=== PATIENT | male | born 1960 | race Caucasian/White ===

== ENCOUNTER 2019-11-29 20:28 | Emergency (ER) | payer MEDICARE, MEDICAID, OTHER ==
[~2019-11-29] VITALS: Ht 165.1 cm; Wt 76.3 kg
[2019-11-29] MEDS ORDERED: KETOROLAC 60MG/2ML VIAL IM ONE (23:30)
[2019-11-30 00:02] LABS: CHLORIDE 111 mEq/L (98-107)
[2019-11-30 00:41] LABS: BASOPHILS % 0.6 % (0.0-2.0); HEMATOCRIT. 30.8 % (42.0-52.0); HEMOGLOBIN. 10.8 g/dL (14.0-18.0); LYMPHOCYTES % 25.3 % (20.0-50.0); MEAN CORPUSCULAR HEMOGLOBIN 31.8 pg (28.0-32.0); MEAN CORPUSCULAR VOLUME 90.4 fL (80.0-94.0); MEAN PLATELET VOLUME 7.9 fl (7.4-10.4); NEUTROPHILS % 56.1 % (40.0-76.0); RED CELL DISTRIBUTION WIDTH 13.8 % (11.6-14.6)
[2019-11-30 00:43] LABS: PLATELET 72 x1000/uL (130-400); RED BLOOD CELL COUNT 3.46 mill/uL (4.7-6.1)
[2019-11-30 03:38] VITALS: BP 120/82
== END 2019-11-30 03:40 | disposition home or self-care (01) ==
LOC: ER 20:28
DX: J06.9 Acute upper respiratory infection, unspecified (principal); E11.9 Type 2 diabetes mellitus without complications; I10 Essential (primary) hypertension; Z98.890 Other specified postprocedural states
CPT/HCPCS: 36415; 71045; 80053; 83880; 84484; 85025; 93005; 96372; 99285; J1885

== ENCOUNTER 2019-12-03 00:41 | Emergency (ER) | payer MEDICARE, OTHER ==
[~2019-12-03] VITALS: Ht 165.1 cm; Wt 81.0 kg
[2019-12-03] MEDS ORDERED: KETOROLAC 30MG/ML VIAL IM STA (01:25)
[2019-12-03 01:47] LABS: BASOPHILS % 0.8 % (0.0-2.0); EOSINOPHILS % 4.3 % (0.0-5.0); HEMATOCRIT. 30.9 % (42.0-52.0); HEMOGLOBIN. 11.2 g/dL (14.0-18.0); LYMPHOCYTES % 21.4 % (20.0-50.0); MEAN CORPUSCULAR HEMOGLOBIN 32.2 pg (28.0-32.0); MEAN CORPUSCULAR VOLUME 89.2 fL (80.0-94.0); MEAN PLATELET VOLUME 7.7 fl (7.4-10.4); MONOCYTES % 11.9 % (2.0-8.0); NEUTROPHILS % 61.6 % (40.0-76.0); PLATELET 80 x1000/uL (130-400); RED BLOOD CELL COUNT 3.47 mill/uL (4.7-6.1)
[2019-12-03 01:50] LABS: CHLORIDE 109 mEq/L (98-107)
[2019-12-03 02:00] LABS: CLARITY URINE CLEAR (CLEAR); KETONES URINE TRACE (NEGATIVE); LEUKOCYTE ESTERASE URINE NEGATIVE (NEGATIVE); NITRITE URINE NEGATIVE (NEGATIVE); OCCULT BLOOD URINE NEGATIVE (NEGATIVE); PROTEIN URINE NEGATIVE (NEGATIVE); SPECIFIC GRAVITY URINE 1.018 (1.005-1.030); UROBILINOGEN URINE 0.2 E.U./dL (0.2-1.0)
[2019-12-03 02:05] LABS: COLOR URINE YELLOW (YELLOW)
[2019-12-03] MEDS ORDERED: ONDANSETRON HCL 4MG/2ML INJ IV STA (02:23)
[2019-12-03] MEDS ORDERED: MORPHINE SULFATE 4 MG/ML CPJ (NOT FOR IM USE) IV STA (02:23)
[2019-12-03 05:14] VITALS: BP 100/66
== END 2019-12-03 06:19 | disposition home or self-care (01) ==
LOC: ER 00:41
DX: R07.89 Other chest pain (principal); E11.9 Type 2 diabetes mellitus without complications; I10 Essential (primary) hypertension; M10.9 Gout, unspecified; K74.60 Unspecified cirrhosis of liver; Z98.1 Arthrodesis status
CPT/HCPCS: 36415; 71045; 80053; 81003; 82962; 83880; 84484; 85025; 93005; 96372; 96374; 96375; 99285; J1885; J2270; J2405

== ENCOUNTER 2021-05-29 08:45 | Inpatient (IN) | payer MEDICARE, OTHER ==
[~2021-05-29] VITALS: Ht 165.1 cm; Wt 83.0 kg
[~2021-05-29 08:45] MED LIST: ALLO100T PO; CHOL500010; GABA-529 PO; LACT10SO6 PO; METF-414 PO; METO-539 PO; METO10TA3 MT; MIRT-90 PO; PANT40TA51 PO; PRAV40TA58 PO; QUIN20TA30 PO; RIFA550T MT; TAMS-11 PO
[2021-05-29] MEDS ORDERED: ASPIRIN 81MG TABLET PO ONE (10:00)
[2021-05-29] MEDS: NITROGLYCERIN 0.4MG TABLET SL SL PRN ×3 (10:06→15:22)
[2021-05-29 10:15] LABS: BASOPHILS % 0.1 % (0.0-2.0); HEMATOCRIT. 26.2 % (42.0-52.0); HEMOGLOBIN. 8.7 g/dL (14.0-18.0); LYMPHOCYTES % 7.7 % (20.0-50.0); MEAN CORPUSCULAR HEMOGLOBIN 29.4 pg (28.0-32.0); MEAN CORPUSCULAR VOLUME 88.6 fL (80.0-94.0); MEAN PLATELET VOLUME 8.4 fl (7.4-10.4); MONOCYTES % 11.3 % (2.0-8.0); NEUTROPHILS % 80.9 % (40.0-76.0); PLATELET 53 x1000/uL (130-400); RED BLOOD CELL COUNT 2.96 mill/uL (4.7-6.1)
[2021-05-29 10:27] LABS: CHLORIDE 110 mEq/L (98-107)
[2021-05-29] MEDS ORDERED: LACTULOSE 20G/30ML UDC PO ONE (14:30)
[2021-05-29] MEDS ORDERED: FUROSEMIDE 20MG TABLET PO ONE (17:00)
[2021-05-30] VITALS (7 sets, daily range): BP systolic 124–162; BP diastolic 76–93
[2021-05-30 00:48] LABS: CLARITY URINE CLEAR (CLEAR); COLOR URINE YELLOW (YELLOW); KETONES URINE NEGATIVE (NEGATIVE); LEUKOCYTE ESTERASE URINE NEGATIVE (NEGATIVE); NITRITE URINE NEGATIVE (NEGATIVE); OCCULT BLOOD URINE NEGATIVE (NEGATIVE); PROTEIN URINE NEGATIVE (NEGATIVE); SPECIFIC GRAVITY URINE 1.008 (1.005-1.030); UROBILINOGEN URINE 0.2 E.U./dL (0.2-1.0)
[2021-05-30] MEDS ORDERED: OXYCODONE HCL 15 MG PO PRN (03:30)
[2021-05-30] MEDS ORDERED: TAMS-11 PO (03:55)
[2021-05-30] MEDS ORDERED: MIRT-90 PO (03:55)
[2021-05-30] MEDS ORDERED: GABA-529 PO (03:55)
[2021-05-30] MEDS ORDERED: PRAV40TA58 PO (03:55)
[2021-05-30] MEDS ORDERED: PROT40 PO (03:55)
[2021-05-30] MEDS ORDERED: QUIN20TA30 PO (03:55)
[2021-05-30] MEDS ORDERED: METO-539 PO (03:55)
[2021-05-30] MEDS ORDERED: METO-293 PO (03:55)
[2021-05-30] MEDS ORDERED: METF-414 PO (03:55)
[2021-05-30] MEDS ORDERED: OXYC-580 PO (03:55)
[2021-05-30] MEDS ORDERED: RIFA550T PO (03:55)
[2021-05-30] MEDS ORDERED: LACT10SO6 PO (03:55)
[2021-05-30] MEDS ORDERED: CHOL500010 PO (03:55)
[2021-05-30] MEDS ORDERED: ALLO100T PO (03:55)
[2021-05-30] MEDS ORDERED: DEXTROSE 50% WATER 50ML SYRINGE IV PRN ×2 (04:30→08:30)
[2021-05-30] MEDS ORDERED: OXYCODONE HCL 5MG TABLET PO PRN (04:30)
[2021-05-30] MEDS: BLOOD SUGAR DIAGNOSTIC STRIP TEST SCH ×4 (07:10→20:37)
[2021-05-30] MEDS: INSULIN LISPRO 100 UNITS/ML SUBCUT SCH ×4 (07:10→21:37)
[2021-05-30] MEDS: PANTOPRAZOLE 40MG DR TABLET PO SCH (07:13)
[2021-05-30] MEDS: METOCLOPRAMIDE HCL 10MG TABLET PO SCH (07:13)
[2021-05-30 07:22] LABS: CHLORIDE 110 mEq/L (98-107)
[2021-05-30 07:33] LABS: EOSINOPHILS % 0.1 % (0.0-5.0); HEMATOCRIT. 24.7 % (42.0-52.0); HEMOGLOBIN. 8.4 g/dL (14.0-18.0); LYMPHOCYTES % 9.5 % (20.0-50.0); MEAN CORPUSCULAR HEMOGLOBIN 29.5 pg (28.0-32.0); MEAN CORPUSCULAR VOLUME 86.9 fL (80.0-94.0); MEAN PLATELET VOLUME 8.1 fl (7.4-10.4); MONOCYTES % 13.4 % (2.0-8.0); RED BLOOD CELL COUNT 2.85 mill/uL (4.7-6.1); RED CELL DISTRIBUTION WIDTH 15.6 % (11.6-14.6)
[2021-05-30 08:12] LABS: *AMPHETAMINES SCREEN URINE NEGATIVE (NEGATIVE); *BARBITURATES SCREEN URINE NEGATIVE (NEGATIVE)
[2021-05-30 08:13] LABS: *BENZODIAZEPINES SCREEN URINE NEGATIVE (NEGATIVE); *COCAINE SCREEN URINE NEGATIVE (NEGATIVE); CANNABINOID URINE SCREEN NEGATIVE (NEGATIVE); METHADONE URINE SCREEN NEGATIVE (NEGATIVE); OPIATES URINE SCREEN NEGATIVE (NEGATIVE); PHENCYCLIDINE URINE SCREEN NEGATIVE (NEGATIVE)
[2021-05-30] MEDS: TAMSULOSIN HCL 0.4MG SR CAPSULE PO SCH (08:21)
[2021-05-30] MEDS: LACTULOSE 20G/30ML UDC PO SCH ×3 (08:21→17:00)
[2021-05-30] MEDS: RIFAXIMIN 550 MG TABLET PO SCH ×2 (08:21→17:28)
[2021-05-30] MEDS: ALLOPURINOL 100 MG TABLET PO SCH (08:22)
[2021-05-30] MEDS: GABAPENTIN 100MG CAPSULE PO SCH ×3 (08:22→17:28)
[2021-05-30] MEDS: METOPROLOL TARTRATE 50MG TABLET PO SCH ×2 (08:22→21:34)
[2021-05-30] MEDS ORDERED: CLONIDINE 0.1MG TABLET PO PRN (08:30)
[2021-05-30] MEDS ORDERED: NALOXONE HCL 0.4MG/ML VIAL IV PRN (08:30)
[2021-05-30] MEDS ORDERED: MAGNESIUM/ALUMINUM HYDROXIDE/SIMETHICONE 30ML UDC PO PRN (08:30)
[2021-05-30] MEDS ORDERED: ONDANSETRON HCL 4MG/2ML INJ IV PRN (08:30)
[2021-05-30] MEDS ORDERED: MEDICATION NOT ON FORMULARY EA (Lactulose 30 GM) PO SCH (09:00)
[2021-05-30] MEDS ORDERED: METFORMIN HCL 500MG TABLET PO SCH (09:00)
[2021-05-30] MEDS ORDERED: MEDICATION NOT ON FORMULARY EA (Pravastatin Sodium 40 MG) PO SCH (09:00)
[2021-05-30] MEDS ORDERED: BLOOD SUGAR DIAGNOSTIC STRIP TEST SCH (12:20)
[2021-05-30 15:47] LABS: PLATELET 44 x1000/uL (130-400); PLATELET ESTIMATE MARKEDLY DECREASED
[2021-05-30 17:05] LABS: CLARITY URINE CLEAR (CLEAR); COLOR URINE YELLOW (YELLOW); KETONES URINE NEGATIVE (NEGATIVE); LEUKOCYTE ESTERASE URINE NEGATIVE (NEGATIVE); NITRITE URINE NEGATIVE (NEGATIVE); OCCULT BLOOD URINE NEGATIVE (NEGATIVE); PH URINE 5.5 (4.5-8.0); PROTEIN URINE NEGATIVE (NEGATIVE); SPECIFIC GRAVITY URINE 1.019 (1.005-1.030); UROBILINOGEN URINE 0.2 E.U./dL (0.2-1.0)
[2021-05-30] MEDS ORDERED: MIRTAZAPINE 30MG TABLET PO SCH (21:00)
[2021-05-30] MEDS: MIRTAZAPINE 15MG TABLET PO SCH (21:00)
[2021-05-30] MEDS: ATORVASTATIN CALCIUM 10MG TABLET PO SCH (21:34)
[2021-05-31 00:18] VITALS: BP 118/67
[2021-05-31 04:00] VITALS: BP 121/61
[2021-05-31 05:51] LABS: CHLORIDE 108 mEq/L (98-107)
[2021-05-31 06:00] LABS: LDL CHOLESTEROL 73 mg/dL (5-100); PHOSPHORUS 3.6 mg/dL (2.5-4.9)
[2021-05-31 06:02] LABS: HDL CHOLESTEROL 31 mg/dL (40-59); T4 FREE 1.17 ng/dL (0.76-1.46)
[2021-05-31 06:21] LABS: INR 1.8; PROTHROMBIN TIME 18.1 sec (9.6-11.0)
[2021-05-31 06:36] LABS: BASOPHILS % 0.1 % (0.0-2.0); HEMATOCRIT. 24.6 % (42.0-52.0); HEMOGLOBIN. 8.5 g/dL (14.0-18.0); LYMPHOCYTES % 9.5 % (20.0-50.0); MEAN CORPUSCULAR HEMOGLOBIN 29.7 pg (28.0-32.0); MEAN PLATELET VOLUME 7.8 fl (7.4-10.4); MONOCYTES % 13.4 % (2.0-8.0); RED BLOOD CELL COUNT 2.87 mill/uL (4.7-6.1); RED CELL DISTRIBUTION WIDTH 15.8 % (11.6-14.6)
[2021-05-31] MEDS: BLOOD SUGAR DIAGNOSTIC STRIP TEST SCH ×4 (07:20→20:45)
[2021-05-31] MEDS ORDERED: SODIUM CHLORIDE 0.9% 1,000 ML IV ONE (07:30)
[2021-05-31] MEDS: INSULIN LISPRO 100 UNITS/ML SUBCUT SCH ×4 (07:50→21:37)
[2021-05-31 08:00] VITALS: BP 124/67
[2021-05-31] MEDS: RIFAXIMIN 550 MG TABLET PO SCH ×2 (08:26→17:41)
[2021-05-31] MEDS: GABAPENTIN 100MG CAPSULE PO SCH ×3 (08:26→17:40)
[2021-05-31] MEDS: METOCLOPRAMIDE HCL 10MG TABLET PO SCH (08:27)
[2021-05-31] MEDS: TAMSULOSIN HCL 0.4MG SR CAPSULE PO SCH (08:27)
[2021-05-31] MEDS: ALLOPURINOL 100 MG TABLET PO SCH (08:27)
[2021-05-31] MEDS: METOPROLOL TARTRATE 50MG TABLET PO SCH ×2 (08:27→21:34)
[2021-05-31] MEDS: PANTOPRAZOLE 40MG DR TABLET PO SCH (08:27)
[2021-05-31] MEDS: LACTULOSE 20G/30ML UDC PO SCH ×2 (08:28→17:41)
[2021-05-31 12:00] VITALS: BP 135/88
[2021-05-31 13:01] LABS: PLATELET 46 x1000/uL (130-400)
[2021-05-31 16:04] VITALS: BP 128/83
[2021-05-31 16:41] LABS: TOTAL IRON BINDING CAPACITY 362 ug/dL (250-450)
[2021-05-31 17:14] LABS: VITAMIN B12 SERUM >2000 pg/mL pg/mL (211-911)
[2021-05-31 17:20] LABS: HEPATITIS B SURFACE ANTIGEN NEGATIVE
[2021-05-31 20:00] VITALS: BP 142/73
[2021-05-31] MEDS: MIRTAZAPINE 15MG TABLET PO SCH (21:00)
[2021-05-31] MEDS: ATORVASTATIN CALCIUM 10MG TABLET PO SCH (21:34)
[2021-06-01] VITALS: BP 128/70
[2021-06-01 04:00] VITALS: BP 134/81
[2021-06-01 05:47] LABS: HEMOGLOBIN. 8.8 g/dL (14.0-18.0); MEAN CORPUSCULAR HEMOGLOBIN 29.6 pg (28.0-32.0); MEAN PLATELET VOLUME 8.2 fl (7.4-10.4); RED BLOOD CELL COUNT 2.99 mill/uL (4.7-6.1); RED CELL DISTRIBUTION WIDTH 15.7 % (11.6-14.6)
[2021-06-01 07:03] LABS: PHOSPHORUS 3.7 mg/dL (2.5-4.9)
[2021-06-01] MEDS: BLOOD SUGAR DIAGNOSTIC STRIP TEST SCH ×2 (07:20→12:20)
[2021-06-01 07:48] LABS: PLATELET 46 x1000/uL (130-400)
[2021-06-01 07:52] VITALS: BP 157/78
[2021-06-01] MEDS: PANTOPRAZOLE 40MG DR TABLET PO SCH (10:07)
[2021-06-01] MEDS: ALLOPURINOL 100 MG TABLET PO SCH (10:07)
[2021-06-01] MEDS: RIFAXIMIN 550 MG TABLET PO SCH ×2 (10:07→17:42)
[2021-06-01] MEDS: GABAPENTIN 100MG CAPSULE PO SCH ×3 (10:07→17:42)
[2021-06-01] MEDS: TAMSULOSIN HCL 0.4MG SR CAPSULE PO SCH (10:08)
[2021-06-01] MEDS: METOPROLOL TARTRATE 50MG TABLET PO SCH (10:09)
[2021-06-01] MEDS: LACTULOSE 20G/30ML UDC PO SCH ×2 (10:09→17:00)
[2021-06-01] MEDS: INSULIN LISPRO 100 UNITS/ML SUBCUT SCH ×3 (10:10→17:42)
[2021-06-01] MEDS: METOCLOPRAMIDE HCL 10MG TABLET PO SCH (10:37)
[2021-06-01 11:00] LABS: PLATELET ESTIMATE DECREASED
[2021-06-01 12:00] VITALS: BP 143/82
[2021-06-01 14:11] VITALS: BP 143/82
== END 2021-06-01 17:55 | disposition home or self-care (01) | DRG 311 ==
LOC: ER 08:45 → 6WST 20:31 → EDBEDREQ 21:27 → ENRESERV 22:22
PROVIDERS: ADMIT Internal Medicine; ATTEND Internal Medicine
DX: I24.9 Acute ischemic heart disease, unspecified (principal); D61.818 Other pancytopenia; N17.9 Acute kidney failure, unspecified; D68.9 Coagulation defect, unspecified; E44.0 Moderate protein-calorie malnutrition; K76.6 Portal hypertension; R18.8 Other ascites; F41.9 Anxiety disorder, unspecified; K21.9 Gastro-esophageal reflux disease without esophagitis; R16.1 Splenomegaly, not elsewhere classified; I12.9 Hypertensive chronic kidney disease with stage 1 through stage 4 chronic kidney disease, or unspecified chronic kidney disease; D50.9 Iron deficiency anemia, unspecified; E11.22 Type 2 diabetes mellitus with diabetic chronic kidney disease; N18.2 Chronic kidney disease, stage 2 (mild); E78.00 Pure hypercholesterolemia, unspecified; R74.01 Elevation of levels of liver transaminase levels; E78.5 Hyperlipidemia, unspecified; K72.10 Chronic hepatic failure without coma; G89.29 Other chronic pain; Z20.822 Contact with and (suspected) exposure to COVID-19; K74.60 Unspecified cirrhosis of liver; N40.0 Benign prostatic hyperplasia without lower urinary tract symptoms; Z83.3 Family history of diabetes mellitus; Z86.73 Personal history of transient ischemic attack (TIA), and cerebral infarction without residual deficits; Z79.84 Long term (current) use of oral hypoglycemic drugs; Z79.899 Other long term (current) drug therapy; Z86.19 Personal history of other infectious and parasitic diseases; R19.7 Diarrhea, unspecified
CPT/HCPCS: 36415; 71045; 76700; 80048; 80053; 80061; 80076; 80305; 81003; 82140; 82248; 82270; 82436; 82570; 82607; 82728; 82746; 82962; 83036; 83540; 83550; 83735; 83880; 84100; 84133; 84300; 84439; 84443; 84484; 85025; 85044; 86705; 86709; 86803; 87070; 87340; 87426; 87430; 87804; 93005; 93306; 93970; 99285; J1815; J8597

== ENCOUNTER 2021-06-13 08:41 | Inpatient (IN) | payer MEDICARE, OTHER ==
[~2021-06-13] VITALS: Ht 170.2 cm; Wt 82.1 kg
[~2021-06-13 08:41] MED LIST changes: +CHOL500010 PO; +METO-293 PO; +OXYC-580 PO; +PROT40 PO; +RIFA550T PO
[2021-06-13 09:51] LABS: HEMATOCRIT. 36.3 % (42.0-52.0); MEAN CORPUSCULAR HEMOGLOBIN 30.9 pg (28.0-32.0); MEAN CORPUSCULAR VOLUME 93.8 fL (80.0-94.0); MEAN PLATELET VOLUME 8.1 fl (7.4-10.4); RED BLOOD CELL COUNT 3.87 mill/uL (4.7-6.1)
[2021-06-13 10:43] LABS: CHLORIDE 104 mEq/L (98-107)
[2021-06-13] MEDS ORDERED: SODIUM CHLORIDE 0.9% 1,000 ML IV ONE (10:45)
[2021-06-13 10:48] LABS: ETHANOL BLOOD < 10 mg/dL
[2021-06-13 11:06] LABS: CLARITY URINE CLEAR (CLEAR); COLOR URINE YELLOW (YELLOW); KETONES URINE NEGATIVE (NEGATIVE); LEUKOCYTE ESTERASE URINE NEGATIVE (NEGATIVE); NITRITE URINE NEGATIVE (NEGATIVE); OCCULT BLOOD URINE NEGATIVE (NEGATIVE); PH URINE 5.5 (4.5-8.0); PROTEIN URINE NEGATIVE (NEGATIVE); SPECIFIC GRAVITY URINE 1.021 (1.005-1.030); UROBILINOGEN URINE 0.2 E.U./dL (0.2-1.0)
[2021-06-13 11:30] LABS: *AMPHETAMINES SCREEN URINE NEGATIVE (NEGATIVE)
[2021-06-13] MEDS ORDERED: CALCIUM GLUCONATE 100MG/ML 10ML VIAL IV ONE (11:30)
[2021-06-13 11:31] LABS: *BARBITURATES SCREEN URINE NEGATIVE (NEGATIVE); *BENZODIAZEPINES SCREEN URINE NEGATIVE (NEGATIVE); *COCAINE SCREEN URINE NEGATIVE (NEGATIVE); METHADONE URINE SCREEN NEGATIVE (NEGATIVE); OPIATES URINE SCREEN NEGATIVE (NEGATIVE); PHENCYCLIDINE URINE SCREEN NEGATIVE (NEGATIVE)
[2021-06-13 11:32] LABS: CANNABINOID URINE SCREEN NEGATIVE (NEGATIVE)
[2021-06-13 12:38] LABS: PLATELET ESTIMATE MARKEDLY DECREASED
[2021-06-13 12:39] LABS: PLATELET 36 x1000/uL (130-400)
[2021-06-13] MEDS ORDERED: CALCIUM GLUCONATE 2,000 MG in DEXT 5% WATER 100 ML IV ONE (13:30)
[2021-06-13] MEDS ORDERED: HYDROCODONE/ACETAMINOPHEN 5/325MG TABLET PO PRN (18:00)
[2021-06-13] MEDS ORDERED: ONDANSETRON HCL 4MG/2ML INJ IV PRN (18:00)
[2021-06-13] MEDS ORDERED: CLONIDINE 0.1MG TABLET PO PRN (18:00)
[2021-06-13] MEDS ORDERED: DEXTROSE 50% WATER 50ML SYRINGE IV PRN ×2 (18:00)
[2021-06-13] MEDS ORDERED: MAGNESIUM/ALUMINUM HYDROXIDE/SIMETHICONE 30ML UDC PO PRN (18:00)
[2021-06-13 19:00] VITALS: BP 166/94
[2021-06-13] MEDS ORDERED: SODIUM POLYSTYRENE SULFONATE 15 G/60 ML BOT PO NR (19:30)
[2021-06-13 20:00] VITALS: BP 166/94
[2021-06-13 20:54] VITALS: BP 126/72
[2021-06-13] MEDS: BLOOD SUGAR DIAGNOSTIC STRIP TEST SCH (21:42)
[2021-06-13] MEDS: RIFAXIMIN 550 MG TABLET PO SCH (21:43)
[2021-06-13] MEDS: PANTOPRAZOLE SODIUM 40 MG/VIAL IV SCH (21:43)
[2021-06-13] MEDS: INSULIN LISPRO 100 UNITS/ML SUBCUT SCH (21:46)
[2021-06-14] VITALS (8 sets, daily range): BP systolic 119–148; BP diastolic 68–81
[2021-06-14] MEDS: SODIUM CHLORIDE 0.9% 1,000 ML IV SCH ×3 (04:00→14:00)
[2021-06-14] MEDS: BLOOD SUGAR DIAGNOSTIC STRIP TEST SCH ×4 (06:27→20:45)
[2021-06-14] MEDS: INSULIN LISPRO 100 UNITS/ML SUBCUT SCH ×4 (06:40→20:45)
[2021-06-14 06:46] LABS: HEMATOCRIT. 30.8 % (42.0-52.0); HEMOGLOBIN. 10.4 g/dL (14.0-18.0); MEAN CORPUSCULAR HEMOGLOBIN 31.4 pg (28.0-32.0); MEAN CORPUSCULAR VOLUME 92.5 fL (80.0-94.0); MEAN PLATELET VOLUME 8.5 fl (7.4-10.4); RED BLOOD CELL COUNT 3.33 mill/uL (4.7-6.1)
[2021-06-14 06:54] LABS: PLATELET 31 x1000/uL (130-400)
[2021-06-14 07:28] LABS: CHLORIDE 105 mEq/L (98-107)
[2021-06-14 07:34] LABS: PHOSPHORUS 3.6 mg/dL (2.5-4.9)
[2021-06-14] MEDS: PANTOPRAZOLE SODIUM 40 MG/VIAL IV SCH ×2 (08:30→20:44)
[2021-06-14] MEDS: RIFAXIMIN 550 MG TABLET PO SCH ×2 (08:30→20:44)
[2021-06-14] MEDS: TAMSULOSIN HCL 0.4MG SR CAPSULE PO SCH (08:31)
[2021-06-14] MEDS ORDERED: SODIUM POLYSTYRENE SULFONATE 15 G/60 ML BOT PO NR (11:00)
[2021-06-14 13:16] LABS: PLATELET ESTIMATE MARKEDLY DECREASED
[2021-06-14 14:58] LABS: CREATINE KINASE 83 IU/L (39-308)
[2021-06-14] MEDS ORDERED: MAGNESIUM 1 G PREMIX 100 ML IV NR (15:30)
[2021-06-14] MEDS: METOPROLOL TARTRATE 25MG TABLET PO SCH (15:40)
[2021-06-14] MEDS ORDERED: ACETAMINOPHEN 650MG/20.3ML UDC PO PRN (16:00)
[2021-06-14] MEDS ORDERED: PIPERACILLIN/TAZOBACTAM 3.375 G in DEXTROSE 5% WATER 50 ML IV SCH (16:00)
[2021-06-14] MEDS ORDERED: ACETAMINOPHEN WITH CODEINE 300/60MG TABLET PO PRN (16:00)
[2021-06-14] MEDS: GABAPENTIN 100MG CAPSULE PO SCH (17:00)
[2021-06-14] MEDS: CEFEPIME 1,000 MG in DEXTROSE 5% WATER 50 ML IV SCH (17:01)
[2021-06-14] MEDS: MIRTAZAPINE 15MG TABLET PO SCH (20:44)
[2021-06-14] MEDS: LACTULOSE 20G/30ML UDC PO SCH (21:57)
[2021-06-14] MEDS ORDERED: NALOXONE HCL 0.4MG/ML VIAL IV PRN (23:15)
[2021-06-15] VITALS: BP 139/90
[2021-06-15] MEDS: METOPROLOL TARTRATE 25MG TABLET PO SCH ×3 (00:19→20:47)
[2021-06-15] MEDS: SODIUM CHLORIDE 0.9% 1,000 ML IV SCH ×3 (00:20→20:46)
[2021-06-15] MEDS: CEFEPIME 1,000 MG in DEXTROSE 5% WATER 50 ML IV SCH ×3 (01:52→18:54)
[2021-06-15 04:00] VITALS: BP 121/67
[2021-06-15] MEDS: LACTULOSE 20G/30ML UDC PO SCH ×3 (05:28→20:49)
[2021-06-15] MEDS: BLOOD SUGAR DIAGNOSTIC STRIP TEST SCH ×4 (06:11→20:48)
[2021-06-15] MEDS: METOCLOPRAMIDE HCL 10MG TABLET PO SCH (06:24)
[2021-06-15 06:33] LABS: HEMATOCRIT. 28.9 % (42.0-52.0); HEMOGLOBIN. 9.8 g/dL (14.0-18.0); MEAN CORPUSCULAR HEMOGLOBIN 32.1 pg (28.0-32.0); MEAN CORPUSCULAR VOLUME 94.3 fL (80.0-94.0); MEAN PLATELET VOLUME 8.6 fl (7.4-10.4); RED BLOOD CELL COUNT 3.06 mill/uL (4.7-6.1); RED CELL DISTRIBUTION WIDTH 20.8 % (11.6-14.6)
[2021-06-15] MEDS: INSULIN LISPRO 100 UNITS/ML SUBCUT SCH ×4 (06:48→20:58)
[2021-06-15 06:54] LABS: INR 1.5; PROTHROMBIN TIME 15.9 sec (9.6-11.0)
[2021-06-15 07:30] LABS: PHOSPHORUS 4.4 mg/dL (2.5-4.9)
[2021-06-15 07:37] LABS: PLATELET 27 x1000/uL (130-400)
[2021-06-15 08:00] VITALS: BP 125/72
[2021-06-15] MEDS: PANTOPRAZOLE SODIUM 40 MG/VIAL IV SCH ×2 (10:10→20:46)
[2021-06-15] MEDS: GABAPENTIN 100MG CAPSULE PO SCH ×3 (10:10→17:11)
[2021-06-15] MEDS: ALLOPURINOL 100 MG TABLET PO SCH (10:10)
[2021-06-15] MEDS: RIFAXIMIN 550 MG TABLET PO SCH ×2 (10:10→20:48)
[2021-06-15] MEDS: TAMSULOSIN HCL 0.4MG SR CAPSULE PO SCH (10:10)
[2021-06-15 11:06] LABS: VITAMIN B12 SERUM > 2000.0 pg/mL (211-911)
[2021-06-15 12:00] VITALS: BP 117/64
[2021-06-15 12:20] LABS: FERRITIN 544 ng/mL (22-322)
[2021-06-15 16:00] VITALS: BP 126/73
[2021-06-15 20:00] VITALS: BP 125/80
[2021-06-15] MEDS: MIRTAZAPINE 15MG TABLET PO SCH (20:47)
[2021-06-15 21:23] LABS: PLATELET ESTIMATE MARKEDLY DECREASED
[2021-06-16] VITALS: BP_SYST 118; BP_SYST 125; BP_DIAS 77; BP_DIAS 80
[2021-06-16] MEDS: CEFEPIME 1,000 MG in DEXTROSE 5% WATER 50 ML IV SCH ×3 (01:08→17:18)
[2021-06-16 04:00] VITALS: BP 139/76
[2021-06-16] MEDS: LACTULOSE 20G/30ML UDC PO SCH ×3 (06:00→16:29)
[2021-06-16] MEDS: BLOOD SUGAR DIAGNOSTIC STRIP TEST SCH ×4 (06:11→21:41)
[2021-06-16] MEDS: INSULIN LISPRO 100 UNITS/ML SUBCUT SCH ×4 (06:11→21:39)
[2021-06-16] MEDS: SODIUM CHLORIDE 0.9% 1,000 ML IV SCH ×2 (06:11→15:57)
[2021-06-16 06:42] LABS: BASOPHILS % 0.2 % (0.0-2.0); HEMATOCRIT. 34.5 % (42.0-52.0); HEMOGLOBIN. 11.6 g/dL (14.0-18.0); LYMPHOCYTES % 9.6 % (20.0-50.0); MEAN CORPUSCULAR HEMOGLOBIN 31.5 pg (28.0-32.0); MEAN CORPUSCULAR VOLUME 93.9 fL (80.0-94.0); MONOCYTES % 11.6 % (2.0-8.0); NEUTROPHILS % 76.6 % (40.0-76.0); RED BLOOD CELL COUNT 3.68 mill/uL (4.7-6.1); RED CELL DISTRIBUTION WIDTH 20.9 % (11.6-14.6)
[2021-06-16] MEDS: METOCLOPRAMIDE HCL 10MG TABLET PO SCH (06:46)
[2021-06-16 06:51] LABS: PLATELET 41 x1000/uL (130-400)
[2021-06-16 08:00] VITALS: BP 138/71
[2021-06-16] MEDS: ALLOPURINOL 100 MG TABLET PO SCH (09:12)
[2021-06-16] MEDS: RIFAXIMIN 550 MG TABLET PO SCH ×2 (09:12→21:41)
[2021-06-16] MEDS: GABAPENTIN 100MG CAPSULE PO SCH ×3 (09:12→16:29)
[2021-06-16] MEDS: PANTOPRAZOLE SODIUM 40 MG/VIAL IV SCH ×2 (09:13→21:38)
[2021-06-16] MEDS: TAMSULOSIN HCL 0.4MG SR CAPSULE PO SCH (09:13)
[2021-06-16] MEDS: METOPROLOL TARTRATE 25MG TABLET PO SCH ×2 (09:13→21:41)
[2021-06-16 12:00] VITALS: BP 113/80
[2021-06-16 16:00] VITALS: BP 120/75
[2021-06-16 20:00] VITALS: BP 130/86
[2021-06-16 20:20] LABS: PLATELET ESTIMATE MARKEDLY DECREASED
[2021-06-16] MEDS: MIRTAZAPINE 15MG TABLET PO SCH (21:40)
[2021-06-16] MEDS ORDERED: CEFTRIAXONE 1,000 MG in DEXTROSE 5% WATER 50 ML IV SCH (23:00)
[2021-06-17] VITALS: BP 123/74
[2021-06-17] MEDS: SODIUM CHLORIDE 0.9% 1,000 ML IV SCH ×3 (02:20→22:00)
[2021-06-17 04:00] VITALS: BP 147/84
[2021-06-17] MEDS: BLOOD SUGAR DIAGNOSTIC STRIP TEST SCH ×4 (05:41→21:00)
[2021-06-17] MEDS: INSULIN LISPRO 100 UNITS/ML SUBCUT SCH ×4 (05:41→21:00)
[2021-06-17] MEDS: METOCLOPRAMIDE HCL 10MG TABLET PO SCH (05:41)
[2021-06-17] MEDS: LACTULOSE 20G/30ML UDC PO SCH ×3 (05:41→22:50)
[2021-06-17 06:30] LABS: BASOPHILS % 0.2 % (0.0-2.0); EOSINOPHILS % 2.8 % (0.0-5.0); HEMATOCRIT. 34.6 % (42.0-52.0); HEMOGLOBIN. 11.6 g/dL (14.0-18.0); MEAN CORPUSCULAR HEMOGLOBIN 31.5 pg (28.0-32.0); MEAN CORPUSCULAR VOLUME 93.9 fL (80.0-94.0); MEAN PLATELET VOLUME 7.7 fl (7.4-10.4); RED BLOOD CELL COUNT 3.68 mill/uL (4.7-6.1); RED CELL DISTRIBUTION WIDTH 20.8 % (11.6-14.6)
[2021-06-17 06:40] LABS: PLATELET 42 x1000/uL (130-400)
[2021-06-17 08:00] VITALS: BP 136/81
[2021-06-17] MEDS: PANTOPRAZOLE SODIUM 40 MG/VIAL IV SCH ×2 (09:22→22:50)
[2021-06-17] MEDS: TAMSULOSIN HCL 0.4MG SR CAPSULE PO SCH (09:22)
[2021-06-17] MEDS: METOPROLOL TARTRATE 25MG TABLET PO SCH ×2 (09:23→22:52)
[2021-06-17] MEDS: ALLOPURINOL 100 MG TABLET PO SCH (09:23)
[2021-06-17] MEDS: RIFAXIMIN 550 MG TABLET PO SCH ×2 (09:23→22:51)
[2021-06-17] MEDS: GABAPENTIN 100MG CAPSULE PO SCH ×3 (09:23→17:09)
[2021-06-17 12:00] VITALS: BP 126/77
[2021-06-17] MEDS ORDERED: PHYTONADIONE 10MG/ML AMP SUBCUT NR (13:45)
[2021-06-17] MEDS ORDERED: LIDOCAINE HCL 1% 20ML VIAL (Pyxis) INJ ONE (14:18)
[2021-06-17 16:00] VITALS: BP 153/87
[2021-06-17] MEDS: CEFTRIAXONE 1,000 MG in DEXTROSE 5% WATER 50 ML IV SCH (22:50)
[2021-06-17] MEDS: MIRTAZAPINE 15MG TABLET PO SCH (22:51)
[2021-06-18] MEDS: LACTULOSE 20G/30ML UDC PO SCH ×3 (06:00→20:28)
[2021-06-18] MEDS: METOCLOPRAMIDE HCL 10MG TABLET PO SCH (06:50)
[2021-06-18 07:05] LABS: HEMATOCRIT. 32.6 % (42.0-52.0); HEMOGLOBIN. 11.2 g/dL (14.0-18.0); MEAN CORPUSCULAR HEMOGLOBIN 32.6 pg (28.0-32.0); MEAN PLATELET VOLUME 7.4 fl (7.4-10.4); RED BLOOD CELL COUNT 3.43 mill/uL (4.7-6.1); RED CELL DISTRIBUTION WIDTH 20.7 % (11.6-14.6)
[2021-06-18] MEDS: BLOOD SUGAR DIAGNOSTIC STRIP TEST SCH ×4 (07:10→20:15)
[2021-06-18 07:31] LABS: INR 1.4; PROTHROMBIN TIME 14.9 sec (9.6-11.0)
[2021-06-18] MEDS: INSULIN LISPRO 100 UNITS/ML SUBCUT SCH ×4 (07:40→20:18)
[2021-06-18 08:00] VITALS: BP 136/82
[2021-06-18 08:12] LABS: PLATELET 41 x1000/uL (130-400)
[2021-06-18] MEDS: RIFAXIMIN 550 MG TABLET PO SCH ×2 (08:49→20:15)
[2021-06-18] MEDS: PANTOPRAZOLE SODIUM 40 MG/VIAL IV SCH ×2 (08:49→20:15)
[2021-06-18] MEDS: SODIUM CHLORIDE 0.9% 1,000 ML IV SCH (08:49)
[2021-06-18] MEDS: ALLOPURINOL 100 MG TABLET PO SCH (08:49)
[2021-06-18] MEDS: TAMSULOSIN HCL 0.4MG SR CAPSULE PO SCH (08:50)
[2021-06-18] MEDS: GABAPENTIN 100MG CAPSULE PO SCH ×3 (08:50→16:20)
[2021-06-18] MEDS: METOPROLOL TARTRATE 25MG TABLET PO SCH ×2 (08:50→20:14)
[2021-06-18 12:00] VITALS: BP 137/81
[2021-06-18] MEDS: PHYTONADIONE 10MG/ML AMP SUBCUT SCH (12:12)
[2021-06-18 13:42] LABS: PLATELET ESTIMATE MARKEDLY DECREASED
[2021-06-18 16:00] VITALS: BP 137/81
[2021-06-18 20:00] VITALS: BP 132/84
[2021-06-18] MEDS: CEFTRIAXONE 1,000 MG in DEXTROSE 5% WATER 50 ML IV SCH (20:15)
[2021-06-18] MEDS: MIRTAZAPINE 15MG TABLET PO SCH (20:15)
[2021-06-19] VITALS: BP 161/84
[2021-06-19 04:00] VITALS: BP 127/86
[2021-06-19] MEDS: BLOOD SUGAR DIAGNOSTIC STRIP TEST SCH ×2 (06:00→12:58)
[2021-06-19] MEDS: LACTULOSE 20G/30ML UDC PO SCH ×2 (06:00→13:10)
[2021-06-19] MEDS: METOCLOPRAMIDE HCL 10MG TABLET PO SCH (06:01)
[2021-06-19] MEDS: INSULIN LISPRO 100 UNITS/ML SUBCUT SCH ×2 (06:03→12:40)
[2021-06-19 07:13] LABS: BASOPHILS % 0.3 % (0.0-2.0); EOSINOPHILS % 3.7 % (0.0-5.0); HEMATOCRIT. 32.8 % (42.0-52.0); HEMOGLOBIN. 11.2 g/dL (14.0-18.0); LYMPHOCYTES % 18.4 % (20.0-50.0); MEAN CORPUSCULAR HEMOGLOBIN 31.9 pg (28.0-32.0); MEAN CORPUSCULAR VOLUME 93.1 fL (80.0-94.0); MEAN PLATELET VOLUME 7.5 fl (7.4-10.4); MONOCYTES % 13.5 % (2.0-8.0); NEUTROPHILS % 64.1 % (40.0-76.0); RED BLOOD CELL COUNT 3.52 mill/uL (4.7-6.1); RED CELL DISTRIBUTION WIDTH 20.9 % (11.6-14.6)
[2021-06-19 07:38] LABS: PLATELET 42 x1000/uL (130-400)
[2021-06-19 08:00] VITALS: BP 110/71
[2021-06-19] MEDS: METOPROLOL TARTRATE 25MG TABLET PO SCH (09:00)
[2021-06-19] MEDS: GABAPENTIN 100MG CAPSULE PO SCH ×2 (09:28→13:10)
[2021-06-19] MEDS: TAMSULOSIN HCL 0.4MG SR CAPSULE PO SCH (09:28)
[2021-06-19] MEDS: PANTOPRAZOLE SODIUM 40 MG/VIAL IV SCH (09:28)
[2021-06-19] MEDS: PHYTONADIONE 10MG/ML AMP SUBCUT SCH (09:29)
[2021-06-19] MEDS: ALLOPURINOL 100 MG TABLET PO SCH (09:30)
[2021-06-19 12:00] VITALS: BP 134/90
[2021-06-19 13:22] VITALS: BP 134/90
== END 2021-06-19 16:05 | disposition home or self-care (01) | DRG 871 ==
LOC: ER 08:41 → MICUSO 12:34 → 8WST 17:33
PROVIDERS: ADMIT Internal Medicine; ATTEND Internal Medicine
PROC: 02HV33Z Insertion of Infusion Device into Superior Vena Cava, Percutaneous Approach (ICD-10-PCS; principal; 2021-06-17)
PROC: B5181ZA Fluoroscopy of Superior Vena Cava using Low Osmolar Contrast, Guidance (ICD-10-PCS; 2021-06-17)
PROC: B548ZZA Ultrasonography of Superior Vena Cava, Guidance (ICD-10-PCS; 2021-06-17)
DX: A41.51 Sepsis due to Escherichia coli [E. coli] (principal); K85.90 Acute pancreatitis without necrosis or infection, unspecified; N17.0 Acute kidney failure with tubular necrosis; D61.818 Other pancytopenia; E46 Unspecified protein-calorie malnutrition; G93.40 Encephalopathy, unspecified; B19.20 Unspecified viral hepatitis C without hepatic coma; E78.00 Pure hypercholesterolemia, unspecified; E78.5 Hyperlipidemia, unspecified; E86.0 Dehydration; E87.5 Hyperkalemia; Z20.822 Contact with and (suspected) exposure to COVID-19; K72.90 Hepatic failure, unspecified without coma; N18.9 Chronic kidney disease, unspecified; E11.22 Type 2 diabetes mellitus with diabetic chronic kidney disease; I12.9 Hypertensive chronic kidney disease with stage 1 through stage 4 chronic kidney disease, or unspecified chronic kidney disease; K21.9 Gastro-esophageal reflux disease without esophagitis; F41.9 Anxiety disorder, unspecified; D64.9 Anemia, unspecified; Z68.28 Body mass index [BMI] 28.0-28.9, adult; Z86.73 Personal history of transient ischemic attack (TIA), and cerebral infarction without residual deficits
CPT/HCPCS: 36415; 36573; 71045; 76700; 80048; 80053; 80076; 80305; 80307; 80320; 80329; 81003; 82140; 82248; 82550; 82607; 82728; 82746; 82962; 83036; 83540; 83550; 83605; 83735; 83880; 84100; 84145; 84443; 84484; 85025; 87077; 87186; 87426; 93005; 93970; 97161; 97166; 99285; C1725; C9113; J0610; J0692; J0696; J1815; J2543; J3430; J3475; J3490; J7030; J7060; J8597; G0480